=== PATIENT | female | born 1965 | race Caucasian/White ===

== ENCOUNTER → 2017-08-28 | Outpatient (CLI) | payer BC ==
[~2017-08-28] MED LIST: DIOVAN PO; ESTROSTEP FE-21 EACH PO; LORAZEPAM 0.50.5 MG PO
== END ==
LOC: RAD 15:11
DX: M19.012 Primary osteoarthritis, left shoulder (principal); M25.712 Osteophyte, left shoulder

== ENCOUNTER → 2018-03-12 | Outpatient (CLI) | payer BC | LOC: RAD 11:20 | DX: M79.671 Pain in right foot (principal) ==

== ENCOUNTER → 2018-10-30 | Outpatient (CLI) | payer BC | LOC: RAD 14:12 | DX: M47.816 Spondylosis without myelopathy or radiculopathy, lumbar region (principal); M47.817 Spondylosis without myelopathy or radiculopathy, lumbosacral region; M46.06 Spinal enthesopathy, lumbar region; M51.26 Other intervertebral disc displacement, lumbar region; M48.061 Spinal stenosis, lumbar region without neurogenic claudication; Z96.642 Presence of left artificial hip joint; Z88.2 Allergy status to sulfonamides; Z88.0 Allergy status to penicillin ==

== ENCOUNTER → 2019-12-28 | Outpatient (CLI) | payer BC | LOC: CAT 14:36 | PROVIDERS: ATTEND Nurse Practitioner | DX: J98.11 Atelectasis (principal); K76.0 Fatty (change of) liver, not elsewhere classified ==

== ENCOUNTER → 2020-02-02 | Outpatient (CLI) | payer BC | LOC: SJCVCIMAG 07:46 | PROVIDERS: ATTEND Internal Medicine Cardiovascular Disease | DX: I07.1 Rheumatic tricuspid insufficiency (principal); R00.0 Tachycardia, unspecified; E78.5 Hyperlipidemia, unspecified; I10 Essential (primary) hypertension ==